=== PATIENT | female | born 1960 | race Caucasian/White ===

== ENCOUNTER 2019-06-03 12:05 | Day surgery (SDC) | payer BC, OTHER ==
[~2019-06-03] VITALS: Ht 152.4 cm; Wt 62.6 kg
[~2019-06-03 12:05] MED LIST: ASPIRIN; GABAPENTIN; HCTZ; LISINOPRIL; NO REGULAR MEDS; PRAVASTATIN
[2019-06-03 12:30] VITALS: Ht 152.4 cm; Wt 62.6 kg
[2019-06-03 12:44] VITALS: BP 113/65; PULSE 79; RESP 16
[2019-06-03 14:05] VITALS: BP 104/60; RESP 20
== END 2019-06-03 13:27 | disposition home or self-care (01) ==
LOC: GIL 12:05
PROVIDERS: ATTEND Internal Medicine Gastroenterology
DX: K92.1 Melena (principal); K64.4 Residual hemorrhoidal skin tags; D12.2 Benign neoplasm of ascending colon; D12.3 Benign neoplasm of transverse colon; K64.8 Other hemorrhoids; I10 Essential (primary) hypertension
CPT/HCPCS: 45380; 88305; Z7610